=== PATIENT | female | born 1975 | race Caucasian/White ===

== ENCOUNTER 2017-10-09 14:20 | Emergency (ER) | payer OTHER ==
[~2017-10-09] VITALS: Ht 157.5 cm; Wt 94.8 kg
[~2017-10-09 14:20] MED LIST: BUSP10 PO; Bactrim 400-801 EACH PO; CEPH500 PO; CYCL10 PO; DULO60 PO; ESCI20; ESCI20 PO; Ferrous Glucon325 M2 PO; Flomax0.4 MG PO; HYDACE10B; HYDACE5 PO; HYDCHL12.5 PO; HYDCHL25 PO; HYDPAM50 PO; K-Dur 20 meq T20 MEQ PO; LAMO100 PO; LAMO50; LISHYD1012 PO; LISI20 PO; LORA1 PO; METO50 PO; Metoprolol-Hct1 EAC1 PO; NAPR500 PO; NAPR500ERA PO; NAPROXEN; NIFE60ER PO; Norco 5-325 Ta1 EACH PO; OLAN5; OLME20; OLME20 PO; OMEP40CA12 PO; ONDA4ODT MM; OXYACE5T PO; OXYC10TA19 PO; PAN-C 500 TABL1 EACH PO; PROC10 PO; Percocet 5-3251 EACH PO; Phenergan25 MG PR; Pyridium200 MG PO; RANI150; RANI150 PO; SULF10OPO OP; SULTRIDS PO; TRAM50; TRAM50 PO; TRAZ50; TRAZ50 PO; TRIHYD253B; TRIHYD5075 PO; Zofran Odt8 MG SL; [UNRECOGNIZED DRUG - OTHER]
[2017-10-09] MEDS ORDERED: BUSP15 PO (14:39)
[2017-10-09] MEDS ORDERED: Lamictal100 MG PO (14:39)
[2017-10-09] MEDS ORDERED: METO50ER PO (14:40)
[2017-10-09] MEDS ORDERED: POTASSIUM600 MG (14:41)
[2017-10-09] MEDS ORDERED: Potassium Citra5 MEQ (14:41)
[2017-10-09] MEDS ORDERED: CHOL10002 (14:42)
[2017-10-09] MEDS ORDERED: FISH OIL EC 1,1 EAC1 (14:42)
== END 2017-10-09 15:08 | disposition home or self-care (01) ==
LOC: ER 14:20
DX: S93.401A Sprain of unspecified ligament of right ankle, initial encounter (principal); Z91.040 Latex allergy status; Z88.5 Allergy status to narcotic agent; Z79.899 Other long term (current) drug therapy; F31.9 Bipolar disorder, unspecified; I10 Essential (primary) hypertension; F17.200 Nicotine dependence, unspecified, uncomplicated; W01.0XXA Fall on same level from slipping, tripping and stumbling without subsequent striking against object, initial encounter
CPT/HCPCS: 73610; 99283